=== PATIENT | female | born 1955 | race Caucasian/White ===

== ENCOUNTER 2018-04-19 19:09 | Emergency (ER) | payer MEDICAID ==
--- NOTE | 2018-04-19 19:18 | ER Report ---
History and Physical Time Seen By MD: 19:18 Hx. of Stated Complaint: patient fell over a cord in her house; states that she rolled her left ankle and heard a pop; pt states 9/10 pain HPI/ROS CHIEF COMPLAINT: Left ankle pain HISTORY OF PRESENT ILLNESS: 62-year-old female patient presents to emergency [facility] with complaint of left ankle pain. Patient states that she was walking at her boyfriend's home and tripped over a cord. She states when she fell her ankle twisted and she felt a pop in the left ankle. Patient states that she is no previous injury to the ankle. She denies any nausea, vomiting. Patient states she has pain that she rates a 9 out of 10. She states she does have decreased sensation to the third fourth and fifth toes. Patient was unable to bear weight and called EMS. She denies any head injury, neck pain. REVIEW OF SYSTEMS: Respiratory: No cough, no dyspnea. Cardiovascular: No chest pain, no palpitations. Gastrointestinal: No vomiting, no abdominal pain. Musculoskeletal: As noted above Allergies: Coded Allergies: No Known Drug Allergies (Unverified , 04/19/18) Home Meds Active Scripts Hydrocodone Bit/Acetaminophen (HYDROCODON-ACETAMINOPHEN 5-325) 1 Each Tablet, 1 EACH PO Q4-6H PRN for PAIN, #12 TAB Prov:BABAR VALDEZ ANTONIA 04/19/18 Past Medical/Surgical History Patient has a past medical history of diverticulitis, cholecystitis, right leg fracture, occasional alcohol use, and anxiety. Patient has surgical history of appendectomy, cholecystectomy, hysterectomy. Reviewed Nurses Notes: Yes Hx Alcohol Use: Yes (occ.) Constitutional Vital Sign - Last 24 Hours 04/19/18 04/19/18 04/19/18 04/19/18 19:10 19:11 19:32 19:39 Temp 98.3 Pulse 90 90 Resp 18 B/P (MAP) 110/63 (79) 110/63 86/67 (73) Pulse Ox 96 93 O2 Delivery Room Air 04/19/18 04/19/18 04/19/18 04/19/18 20:00 20:09 20:30 20:39 Pulse 101 ??? B/P (MAP) 103/53 (70) 114/56 (75) Pulse Ox 94 04/19/18 20:47 Pulse 85 Resp 16 B/P (MAP) 132/85 (101) Pulse Ox 95 O2 Delivery Room Air Physical Exam General Appearance: The patient is alert, has no immediate need for airway protection and no current signs of toxicity. Respiratory: Chest is non tender, lungs are clear to auscultation. Cardiac: regular rate and rhythm Gastrointestinal: Abdomen is soft and non tender, no masses, bowel sounds normal. Musculoskeletal: Neck: Neck is supple and non tender. Extremities have full range of motion and are non tender. A shunt has tenderness to the lateral and medial malleoli, no tenderness to the foot, patient had decreased sensation to third fourth and fifth toes. She is able to move her toes without any difficulties. Skin: No rashes or lesions. DIFFERENTIAL DIAGNOSIS: After history and physical exam differential diagnosis was considered for sprain, contusion, fracture. Medical Decision Making EKG/Imaging Imaging FOOT 3 VIEW LEFT Indication: Fall. Foot pain. Comparison: Exam is reviewed in conjunction with today's ankle images. Findings: 3 views of the left foot were obtained. With respect to the foot, no acute fracture is seen. Ossification seen along the dorsum of the distal talus which appears corticated and is likely sequela of an old avulsion. There is a heel spur. There are Achilles insertional ossifications identified. Mild changes of osteoarthritis are seen at the first metatarsophalangeal joint. Midfoot joint spaces are intact. IMPRESSION: 1. No acute fracture or dislocation at the left foot. See today's ankle report for further details concerning the distal tibia and fibula. 2. Heel spur. 3. Suspected old avulsion type fracture from the dorsum of the talus. Report Dictated By: Domingo Glover at 04/19/2018 9:04 PM Report E-Signed By: Domingo Glover at 04/19/2018 9:06 PM ANKLE 3 VIEW MIN LEFT Indication: Fall. Lateral ankle pain. Comparison: None Available Findings: 3 views of the right ankle are obtained. There is a transverse fracture seen through the distal tip of the lateral malleolus. The distal tip fracture fragm ent is minimally displaced. There is overlying soft tissue swelling. On the mortise view, there is a tiny avulsion suggested from the distal tip of the medial malleolus. No tibiotalar joint effusion. On the lateral projection, ossification is seen along the dorsum of the distal talus which does appear corticated and is likely sequela of an old avulsion in this location. Correlate for pain. There is a heel spur. There are Achilles insertional ossifications. IMPRESSION: 1. Acute, minimally displaced transverse fracture through the tip of the distal fibular malleolus with soft tissue swelling. 2. Question minimally displaced, tiny avulsion fracture from the distal tip of the medial malleolus. 3. Heel spur. Report Dictated By: Domingo Glover at 04/19/2018 9:01 PM Report E-Signed By: Domingo Glover at 04/19/2018 9:04 PM ED Course/Re-evaluation ED Course Patient was admitted to exam room, history and physical were obtained. Differential diagnoses were considered. On examination lungs are clear, heart is regular, abdomen soft nontender. Patient does have tenderness to the bilateral malleoli. X-rays done of the left ankle and left foot. Does show a small avulsion fracture of the distal fibula. I discussed the findings with the patient. We'll go ahead place her in a walking boot, give her limited supply of pain medication and have her follow-up with orthopedics next week. She is to call Saturday to make an appointment. I discussed with patient who verbalized understanding and agreement with plan. Decision to Disposition Date: Apr 19, 2018 Decision to Disposition Time: 20:19 Depart Departure Latest Vital Signs Vital Signs Date Time Temp Pulse Resp B/P (MAP) Pulse Ox O2 Delivery O2 Flow Rate FiO2 04/19/18 20:47 85 16 132/85 (101) 95 Room Air 04/19/18 19:11 98.3 Impression: Primary Impression: Fracture of distal fibula Condition: Stable Disposition: HOME OR SELF-CARE New Scripts Hydrocodone Bit/Acetaminophen (HYDROCODON-ACETAMINOPHEN 5-325) 1 Each Tablet 1 EACH PO Q4-6H PRN for PAIN, #12 TAB Prov: BABAR VALDEZ 04/19/18 Patient Instructions: Ankle Fracture (ED) Additional Instructions: Limit activity by pain. Ice the ankle 2-3 times a day for 20-30 minutes. Follow up with orthopedics, call Saturday to make an appointment. You may take a walking boot off to shower. Return to the ER with uncontrollable pain or numbness to the foot. You may take Ibuprofen as needed for pain in addition to the pain medication. Don't take any additional Tylenol while on the pain medication. Problem Qualifiers Primary Impression: Fracture of distal fibula Encounter type: initial encounter Fracture type: closed Fracture m orphology: other fracture Laterality: left Qualified Codes: S82.832A - Other fracture of upper and lower end of left fibula, initial encounter for closed fracture BABAR VALDEZ Apr 19, 2018 19:18
[2018-04-19] MEDS ORDERED: MORPHINE 4 MG/ML SDV IVP ONE (19:25)
[2018-04-19] MEDS ORDERED: NS(*) 0.9% 1000 ML BAG 1,000 ML IV ONE (19:25)
[2018-04-19] MEDS ORDERED: HYDR-385 PO (20:21)
[2018-04-19] MEDS ORDERED: ACET/HYDROC 5/325MG TH ER ONLY 2 TAB/BOTTLE PO ONE (20:25)
[2018-04-19 20:47] VITALS: BP 132/85
--- NOTE | 2018-04-19 21:07 | RADIOLOGY IMAGING REPORT ---
FACILITY: [facility] PATIENT NAME: Annabelle Ann : 1955 MR: [id number] V: [id number] EXAM DATE: ORDERING PHYSICIAN: BABAR VALDEZ TECHNOLOGIST: Location: [facility] Patient: Annabelle Ann : 1955 Visit/Account:[id number] Date of Sevice: 04/19/2018 ADDENDUM #1 Addendum: For clarity, this is a left ankle examination as correctly described in the title of this report. The first sentence of the findings section of this report should read as follows: 3 views of the left an kle are obtained. Report Dictated By: Domingo Glover at 04/23/2018 2:56 AM Report E-Signed By: Domingo Glover at 04/23/2018 2:57 AM ORIGINAL REPORT ANKLE 3 VIEW MIN LEFT Indication: Fall. Lateral ankle pain. Comparison: None Available Findings: 3 views of the right ankle are obtained. There is a transverse fracture seen through the distal tip o f the lateral malleolus. The distal tip fracture fragment is minimally displaced. There is overlying soft tissue swelling. On the mortise view, there is a tiny avulsion suggested from the distal tip of the medial malleolus. No tibiotalar joint effusion. On the lateral projection, ossification is seen a long the dorsum of the distal talus which does appear corticated and is likely sequela of an old avul jose in this location. Correlate for pain. There is a heel spur. There are Achilles insertional ossif ications. IMPRESSION: 1. Acute, minimally displaced transverse fracture through the tip of the distal fibular malleolus wit h soft tissue swelling. 2. Question minimally displaced, tiny avulsion fracture from the distal tip of the medial malleolus. 3. Heel spur. Report Dictated By: Domingo Glover at 04/19/2018 9:01 PM Report E-Signed By: Domingo Glover at 04/19/2018 9:04 PM WSN:[id number]
--- NOTE | 2018-04-19 21:09 | RADIOLOGY IMAGING REPORT ---
[place] [facility] [place] Annabelle Ann : 1955 MR: [id number] V: [id number] EXAM DATE: ORDERING PHYSICIAN: BABAR VALDEZ TECHNOLOGIST: Location: [facility] Patient: Annabelle Ann : 1955 Visit/Account:[id number] Date of Sevice: 04/19/2018 FOOT 3 VIEW LEFT Indication: Fall. Foot pain. Comparison: Exam is reviewed in conjunction with today's ankle images. Findings: 3 views of the left foot were obtained. With respect to the foot, no acute fracture is seen. Ossification seen along the dorsum of the distal talus which appears corticated and is likely sequela of an old avulsion. There is a heel spur. There are Achilles insertional ossifications identified. Mild changes of osteoarthritis are seen at the fi rst metatarsophalangeal joint. Midfoot joint spaces are intact. IMPRESSION: 1. No acute fracture or dislocation at the left foot. See today's ankle report for further details co ncerning the distal tibia and fibula. 2. Heel spur. 3. Suspected old avulsion type fracture from the dorsum of the talus. Report Dictated By: Domingo Glover at 04/19/2018 9:04 PM Report E-Signed By: Domingo Glover at 04/19/2018 9:06 PM WSN:[id number]
== END 2018-04-19 21:00 | disposition home or self-care (01) ==
LOC: ER 19:18
DX: S82.832A Other fracture of upper and lower end of left fibula, initial encounter for closed fracture (principal); W01.0XXA Fall on same level from slipping, tripping and stumbling without subsequent striking against object, initial encounter
CPT/HCPCS: 73610; 73630; 96361; 96374; 99284; J2270; J7030

== ENCOUNTER → 2018-04-19 | Outpatient (CLI) | payer MEDICAID ==
[~2018-04-19] MED LIST: HYDR-385 PO
== END ==
LOC: AMB 18:42
PROVIDERS: ATTEND Nurse Practitioner
DX: M25.572 Pain in left ankle and joints of left foot (principal); M79.89 Other specified soft tissue disorders
CPT/HCPCS: A0425; A0427